=== PATIENT | male | born 1995 ===

== ENCOUNTER → 2024-07-20 | Day surgery (SDC) | payer MEDICAID, SELFPAY ==
[2024-07-19 14:55] VITALS: BMI 26.9
[2024-07-20 07:45] VITALS: BP 134/88; PULSE 93; RESP 16; TEMP 36.7; O2SAT 100; BMI 26.4
[2024-07-20] MEDS: SODIUM CHLORIDE 0.9% 500 ML 500 ML 20 ML IV (08:05)
--- NOTE | 2024-07-20 08:45 | SUR.PREOP ---
Patient was noted to become increasingly agitated. He stood up abruptly from [facility] and told [facility] staff at bedside he wanted to go back to his unit. Patient was re-directed to [facility]. IV was discontinued. IV site to right hand clean and dry. Dr. Tolentino was called and notified by charge nurse. Patient dressed himself and was escorted back to [facility] with [facility] and unit staff without further incident.
== END | disposition home or self-care (01) ==
LOC: SASD 07:23
PROVIDERS: PCP Internal Medicine; Referring Provider Specialist; Visit Provider Specialist
PROC: (CPT 43239; principal; 2024-07-20 08:30)
DX: R11.11 Vomiting without nausea (principal); Z53.9 Procedure and treatment not carried out, unspecified reason
CPT/HCPCS: 43235; J7040

== ENCOUNTER 2024-10-05 07:05 | Day surgery (SDC) | payer MEDICAID, SELFPAY ==
[2024-10-05] VITALS (9 sets, daily range): BP systolic 118–145; BP diastolic 80–97; PULSE 69–78; RESP 12–20; TEMP 36.5–36.6; O2SAT 94–100; BMI 27.9
[2024-10-05] MEDS: MIDAZOLAM INJ 1 MG/ML VIAL 2 ML IVP (07:43)
[2024-10-05] MEDS: MIDAZOLAM INJ 1 MG/ML VIAL 2 ML (ASD USE ONLY) IVP (08:08)
[2024-10-05] MEDS: SODIUM CHLORIDE 0.9% 500 ML 500 ML 20 ML IV (09:15)
[2024-10-05] MEDS: fentaNYL CIT INJ 50 mCg/ML AMP 2ML (ASD USE ONLY) IVP (09:18)
[2024-10-05] MEDS: MIDAZOLAM INJ 1 MG/ML VIAL 2 ML (ASD USE ONLY) 2 MG IVP (09:18)
== END 2024-10-05 10:03 | disposition home or self-care (01) ==
PROVIDERS: Referring Provider Specialist; Visit Provider Specialist
PROC: (CPT 43239; principal; 2024-10-05 08:30)
DX: K20.90 Esophagitis, unspecified without bleeding (principal); K29.70 Gastritis, unspecified, without bleeding; K31.89 Other diseases of stomach and duodenum; K29.50 Unspecified chronic gastritis without bleeding
CPT/HCPCS: 43239; J1200; J2250; J3010; J7999

== ENCOUNTER 2025-02-21 15:50 | Inpatient (IN) | payer MEDICAID, SELFPAY ==
[2025-02-21 15:52] VITALS: BP 164/91; PULSE 91; PULSE 99; RESP 18; TEMP 36.5; O2SAT 100; O2SAT 99; BMI 24.9
--- NOTE | 2025-02-21 16:25 | PD.EDRECHK ---
ED Recheck Abnl Lab Rx-RME/HPI General Chief Complaint: Weakness Stated Complaint: WEAKNESS Time Seen by Provider: 02/21/25 16:04 Arrival date/time: 02/21/25 15:50 Limitations: no limitations RME / HPI Description of abnormal result: 29 year old male with history of moderate intellectual disability, autism, schizophrenia, bipolar disorder, Asperger's, hyperlipidemia presents to the ED BIBA from [facility] for evaluation of abnormal labs. Per staff from [facility], patient has had abnormal behaviors in the last 2 days and labs were drawn today. State they received a call stating the patients sodium was 120 and BUN was 6. In the ED, patient reports feeling fine and does not provide any additional history. Related Data Home Medications ?Medication ?Instructions ?Recorded ?Confirmed atorvastatin 10 mg tablet 10 mg PO QPM 07/19/24 02/21/25 benztropine 1 mg tablet 1 mg PO QDAY 07/19/24 02/21/25 citalopram 10 mg tablet 10 mg PO QDAY 07/19/24 02/21/25 diphenhydramine HCl 50 mg tablet 50 mg PO HS 07/19/24 02/21/25 divalproex 500 mg tablet,extended 750 mg PO BID 07/19/24 02/21/25 release 24 hr haloperidol 10 mg tablet 10 mg PO HS 07/19/24 02/21/25 haloperidol 10 mg tablet 15 mg PO BID 07/19/24 02/21/25 cholecalciferol (vitamin D3) 50 2,000 unit PO QDAY 02/21/25 02/21/25 mcg (2,000 unit) capsule (D3-2000) docusate sodium 100 mg capsule 100 mg PO BID 02/21/25 02/21/25 Allergies Allergy/AdvReac Type Severity Reaction Status Date / Time clindamycin Allergy Verified 10/05/24 07:48 Review of Systems Review of Systems Systems Reviewed: All systems reviewed, normal except as documented Past Medical History Past Medical History NEUROLOGIC: Positive Neurological Disorders (EXTRAPYRAMIDAL MOVEMENT DISORDER) CARDIAC: Positive Cardiac Disorders and Hypercholesterolemia GASTROINTESTINAL: Positive Gastrointestinal Disorders (RECURRENT VOMITING, EATS FAST, DRINKS LARGE AMOUNTS OF WATER) PSYCHO/SOCIAL: Positive Psychiatric Problems, Schizophrenia, Bipolar Disorder, Anxiety and Behavior Problems OTHER HISTORY: Positive Autism and Developmental Delay (INTELLECTUAL DISABILITY) Social History SMOKING STATUS: Current some day smoker ED Exam General Limitations: Present no limitations General appearance: Present alert and in no apparent distress Head Head exam: Present atraumatic Eye Eye exam: Present normal appearance, PERRL and EOMI ENT ENT exam: Present normal exam, normal oropharynx and mucous membranes moist Neck Neck exam: Present normal inspection, full ROM and trachea midline Chest Chest inspection: Present normal inspection and symmetric chest wall rise Respiratory Respiratory exam: Present normal lung sounds bilaterally Cardiovascular Cardiovascular exam: Present regular rate, normal rhythm and normal heart sounds Abdominal Exam Abdominal exam: Present soft and normal bowel sounds Extremities Exam Extremities exam: Present normal inspection and full ROM Back Exam Back exam: Present normal inspection and full ROM Neurological Exam Neurological exam: Present alert and other (history of moderate intellectual disability) Psychiatric Psychiatric exam: Present other (Patient is guarded, at times agitated, combative with [facility] staff ) Skin Skin exam: Present warm, dry, intact and normal color Course Quality Measures none Orders Category Date Time Status Admit to Inpatient Status Routine Admission 02/22/25 08:44 Active Patient Condition Routine Admission 02/21/25 18:[address] in Observation Status Routine Admission 02/21/25 18:55 Active 24 HR Medical Restraints Q2HR Care 02/21/25 18:58 Completed Miscellaneous Nursing Order NOW Care 02/21/25 19:00 Completed Miscellaneous Nursing Order PRN Care 02/21/25 18:59 Completed Notify provider NEEDED Care 02/21/25 18:55 Completed Obtain weight daily Care 02/21/25 18:55 Completed Strict Intake and Output Routine Care 02/21/25 18:55 Ordered Consult to Nephrology Stat Cons 02/21/25 19:04 Ordered Diet Regular Diet 02/21/25 Dinner Active CBC AM DRAW Lab 02/22/25 04:37 Completed CBC Stat Lab 02/21/25 16:30 Completed CMP [Comprehensive Metabolic Panel] Routine Lab 02/22/25 04:35 Completed CMP [Comprehensive Metabolic Panel] Stat Lab 02/21/25 16:30 Completed Creatinine,Random Urine Stat Lab 02/21/25 16:35 Completed Drug Screen,Urine Stat Lab 02/21/25 20:15 Completed Electrolytes, Urine Random Stat Lab 02/21/25 16:35 Completed Electrolytes, Urine Random Stat Lab 02/21/25 20:15 Completed INR [Prothrombin Time with INR] Stat Lab 02/21/25 16:30 Completed Magnesium AM DRAW Lab 02/22/25 04:37 Completed Osmolality, Serum* Stat Lab 02/21/25 16:35 Completed Osmolality, Urine* Stat Lab 02/21/25 16:35 Completed Phosphorous AM DRAW Lab 02/22/25 04:37 Completed Sodium Q4H Lab 02/21/25 20:54 Completed Sodium Q4H Lab 02/22/25 01:06 Completed Sodium Q4H Lab 02/22/25 04:37 Completed UA, C/S IF [Urinalysis, C/S if Indicated] Stat Lab 02/21/25 20:15 Completed Acetaminophen Tab [Tylenol Tab] Med 02/21/25 18:55 Discontinued 650 mg PO Q6H PRN Atorvastatin Calcium [Lipitor] Med 02/21/25 21:00 Discontinued 10 mg PO QPM Benztropine [Cogentin] Med 02/22/25 09:00 Discontinued 1 mg PO QDAY DiphenhydrAMINE [Benadryl] Med 02/21/25 21:00 Discontinued 50 mg PO HS Divalproex Sod ER [Depakote Er] Med 02/21/25 21:00 Discontinued 750 mg PO BID Haloperidol Lactate [Haldol Inj] Med 02/21/25 19:04 Discontinued 5 mg IM Q8HR PRN LORazepam [Ativan Inj] Med 02/21/25 19:51 Discontinued 2 mg IV Q15MIN PRN Midazolam Inj [Versed Inj] Med 02/21/25 16:36 Discontinued 1 mg IVP X1 ONE Nicotine Patch [Nicoderm Patch] Med 02/21/25 22:00 Discontinued 21 mg TOP QDAY Ondansetron Inj [Zofran Inj] Med 02/21/25 18:55 Discontinued 4 mg IVP Q6H PRN Sodium Chloride 0.9% 1000 ml [Ns] 1,000 ml Med 02/21/25 18:20 Discontinued IV 75 mls/hr haloperidoL [Haldol] Med 02/22/25 09:00 Discontinued 15 mg PO BID Code Status Routine Oth 02/21/25 18:55 Completed EKG (RT) Stat RT 02/21/25 19:02 Ordered Oxygen Delivery PRN RT 02/21/25 18:55 Completed Vital Signs Vital signs: Vital Signs Temperature 97.7 F 02/21/25 15:52 Pulse Rate 99 02/21/25 15:52 Respiratory Rate 18 02/21/25 15:52 Blood Pressure 164/91 H 02/21/25 15:52 Pulse Oximetry (%) 100 02/21/25 15:52 Oxygen Delivery Method Room Air 02/21/25 15:52 Pulse ox is 100% on room air which is adequate. Recheck / Abnormal Lab / Rx MDM Narrative MDM Narrative:: ISuzi, am scribing for and in the presence of Dr. Harvey. Patient is a 29-year-old male with medical history notable for aggressive behavior, developmental delay, that is coming in from long-term facility for people with cognitive delay, for altered behavior. Vital signs and exam as listed. Concern for medication side effect, renal dysfunction, intoxication, substance use among others. Facility did order labs which showed patient had a sodium of 120, critically low and so was brought to the emergency department. Will order labs and medication to help with symptom relief and agitation. Labs with evidence of sodium 126, chloride 90 BUN 5 Osm's 250. 1627p: I spoke with hospitalist team A for admission. Requesting consultation with road oiler prior to admission. 1634p: I spoke with road oiler Dr. Larios. Discussed patients PMHx, HPI, ED course, exam findings, labs results. States there are multiple medications he is on that could be contributing to hyponatremia. He recommends we admit the patient here and recommends normal saline at 75mls/hr with q4h renal panels. Once the sodium gets to 130 to stop the fluids. Patient data External records reviewed:: [facility] previous records, EMS form and Other (specify) (I reviewed records from [facility] ) Clinical information provided by:: EMS and client representative Social determinants that could affect healthcare access:: mental health Patient has the following chronic illnesses:: moderate intellectual disability, autism, schizophrenia, bipolar disorder, Asperger's, hyperlipidemia How is presenting disease/condition affected by chronic disease/condition?: exacerbated by Evaluation data The following diagnostics were reviewed and interpreted by me:: lab results Lab and/or radiology exams considered but not ordered:: None Interpretation Summary: See MDM Medications / Prescriptions Medications or Prescriptions considered but not ordered:: None Medication administrations:: Medication Administration History Discontinued Medications Acetaminophen (Acetaminophen 325 Mg Tablet) 650 mg PO Q6H PRN PRN Reason: Fever >100.4 or Pain 1-10 Stop: 03/23/25 18:54 Atorvastatin Calcium (Atorvastatin Calcium 10 Mg Tablet) 10 mg PO QPM [facility] Stop: 03/23/25 20:59 Last Admin: 02/21/25 21:17 Dose: 10 mg Documented By: RC Benztropine Mesylate (Benztropine 0.5 Mg Tablet) 1 mg PO QDAY BERNARD Stop: 03/24/25 08:59 Last Admin: 02/22/25 08:29 Dose: 1 mg Documented By: SC Diphenhydramine HCl (Diphenhydramine 25 Mg Capsule) 50 mg PO HS BERNARD Stop: 03/23/25 20:59 Last Admin: 02/21/25 21:17 Dose: 50 mg Documented By: RC Divalproex Sodium (Divalproex Sod Er 250 Mg Freddy (Non-Formulary)) 750 mg PO BID BERNARD Stop: 03/23/25 20:59 Last Admin: 02/22/25 08:29 Dose: 750 mg Documented By: SC Admin: 02/21/25 21:16 Dose: 750 mg Documented By: DEQUAN Haloperidol (Haloperidol 5 Mg Tablet) 15 mg PO BID [facility]; Protocol Stop: 03/24/25 08:59 Last Admin: 02/22/25 09:49 Dose: 15 mg Documented By: SC Haloperidol Lactate (Haloperidol Lact Inj 5 Mg/Ml Vial) 5 mg IM Q8HR PRN; Protocol PRN Reason: AGITATION (SEVERE) Stop: 03/23/25 19:03 Sodium Chloride (Ns) 1,000 mls @ 75 mls/hr IV .[id number] [facility] Stop: 03/23/25 18:19 Last Admin: 02/21/25 18:35 Dose: 75 mls/hr Documented By: BY Lorazepam (Lorazepam 2 Mg/Ml Vial) 2 mg IV Q15MIN PRN PRN Reason: AGITATION (SEVERE) Midazolam HCl (Midazolam Inj 1 Mg/Ml Vial 2 Ml) 1 mg IVP X1 ONE Stop: 02/21/25 16:37 Last Admin: 02/21/25 16:51 Dose: 1 mg Documented By: BY Nicotine (Nicotine Patch 21 Mg/24 Hr Patch.Td24) 21 mg TOP QDAY BERNARD Stop: 03/23/25 21:59 Last Admin: 02/22/25 08:28 Dose: 21 mg Documented By: SC Admin: 02/21/25 22:14 Dose: 21 mg Documented By: RC Ondansetron HCl (Ondansetron Inj 2 Mg/Ml Inj 2 Ml) 4 mg IVP Q6H PRN; Protocol PRN Reason: NAUSEA OR VOMITING Stop: 03/23/25 18:54 See above Consultations Consultation(s) initiated? (list below): Yes Consultation #1 (Physician, Specialty, Details): See [facility] Diagnosis Recheck Differential Diagnosis: other Most likely diagnosis given after review of the tests above:: Symptomatic hyponatremia Admission Indicated Admission indicated?: indicated Admission Request Was there a request for admission?: Yes Admission Attestation Admission request attestation: Discussed case with [] from Hospitalist service regarding admission. Discussed patients ED course, exam findings, labs, and radiology results. The Hospitalist [agrees,declines] to accept the patient for admission. Disposition Plan Disposition Plan: Admit Critical Care Time Critical Care Time Critical Care Time: Yes Total Critical Care Time (min.): 36 Attestation: Total critical care time: Approximately?36?minutes Due to a high probability of clinically significant, life threatening deterioration, the patient required my highest level of preparedness to intervene emergently and I personally spent this critical care time directly and personally managing the patient. This critical care time included obtaining a history; examining the patient; pulse oximetry; ordering and review of studies; arranging urgent treatment with development of a management plan; evaluation of patient's response to treatment; frequent reassessment; and, discussions with other providers. This critical care time was performed to assess and manage the high probability of imminent, life-threatening deterioration that could result in multi-organ failure. It was exclusive of separately billable procedures and treating other patients and teaching time. Please see MDM section and the rest of the note for further information on patient assessment and treatment. Discharge Plan Plan Patient Disposition: Admit Acute Care w/in Hospital Patient condition on transfer: Stable Problem List Clinical Impression: Hyponatremia, Acute confusion Patient/Caregiver Discharge Instructions Discharge Activity: as per physical therapy, activity as tolerated and resume usual activities
[2025-02-21 16:40] LABS: Basophils # (Auto) 0.0 Thou/mm3 (0.0-0.2); Basophils % (Auto) 0 % (0-2.5); Eosinophils # (Auto) 0.0 Thou/mm3 (0.0-0.5); Eosinophils % (Auto) 0 % (0-10); Hematocrit 37.8 % (41.0-53.0); Hemoglobin 13.8 g/dL (13.5-16.0); Immature Granulocytes Auto 0.02 Thou/mm3 (0.00-0.00); Lymphocytes # (Auto) 2.0 Thou/mm3 (1.0-4.8); Lymphocytes % (Auto) 43 % (10-50); Mean Corpuscular HGB Conc 36.5 g/dl (31.0-37.0); Mean Corpuscular Hemoglobin 34.2 pg (25.0-35.0); Mean Corpuscular Volume 94 fL (80-100); Monocytes # (Auto) 0.8 Thou/mm3 (0.0-0.8); Monocytes % (Auto) 17 % (0-12); Neutrophils # (Auto) 1.8 Thou/mm3 (1.8-7.7); Neutrophils % (Auto) 40 % (37-80); Nucleated Red Blood Cell # 0.00 Thou/mm3 (0.00-0.00); Nucleated Red Blood Cell % 0 /100 WBC (0); Platelet Count 299 Thou/mm3 (140-440); RDW Standard Deviation 38.5 fL (35.1-43.9); Red Blood Count 4.03 Miln/mm3 (4.50-5.90); White Blood Count 4.6 Thou/mm3 (3.8-10.6)
[2025-02-21] MEDS: MIDAZOLAM INJ 1 MG/ML VIAL 2 ML IVP (16:51)
[2025-02-21 16:54] VITALS: BP 128/93; PULSE 98; RESP 18; O2SAT 97
[2025-02-21 17:01] LABS: INR 1.1 (0.9-1.3); Prothrombin Time 11.4 Seconds (9.0-12.2)
[2025-02-21 17:08] LABS: Alanine Aminotransferase 26 U/L (10-49); Albumin, Serum 5.2 gm/dL (3.5-5.0); Albumin/Globulin Ratio 1.7 (1.2-2.2); Alkaline Phosphatase 85 U/L (46-116); Anion Gap 9 (7-16); Aspartate Amino Transferase 77 U/L (0-34); BUN/Creatinine Ratio 6 Ratio (12-20); Bilirubin,Total 0.7 mg/dL (0.3-1.2); Blood Urea Nitrogen 5 mg/dL (9-23); Calcium 10.3 mg/dL (8.3-10.6); Calcium (Corrected) 10.3 mg/dL (8.5-10.1); Carbon Dioxide 27.3 mMol/L (20.0-31.0); Chloride 90 mMol/L (98-107); Creatinine (Component) 0.9 mg/dL (0.6-1.3); Estimated Creatinine Clearance 139.5 mL/min (>60); Globulin 3.0 gm/dL (2.3-3.5); Glucose 93 mg/dL (74-106); Osmolality,Calculated 250 (275-295); Potassium 4.8 mMol/L (3.4-5.1); Sodium 126 mMol/L (136-145); Total Protein 8.2 gm/dL (5.7-8.2); eGFR > 60 See Note
[2025-02-21 17:14] LABS: Chloride,Urine Random < 20.0 mMol/L (55.0-125.0); Creatinine,Random Urine 17 mg/dL (30-125); Potassium,Urine Random < 10 mMol/L (12-62); Sodium,Urine Random < 10.0 mMol/L (20.0-110.0)
--- NOTE | 2025-02-21 17:20 | PC.NURSE ---
spoke to anusha from [facility], if patient needs any consents it is Nate Rahman at there facility who can make any medical decision, he can be reached at [phone], also spoke to sherry the supervisior at the facility , states that patient was not acting himself today, was saying and doing things out of the ordinary, not usual things he would do on a normal day
[2025-02-21] MEDS: SODIUM CHLORIDE 0.9% 1000 ML 1,000 ML 75 ML IV (18:35)
[2025-02-21 18:37] VITALS: BP 129/65; PULSE 86; RESP 18; O2SAT 96
[2025-02-21 20:39] LABS: Collection Type, Urine Clean Catch; Squamous Epithelial Cell,Urine 0 /hpf (0-5); WBC,Urine 0 /hpf (0-5)
[2025-02-21 20:47] LABS: Chloride,Urine Random < 20.0 mMol/L (55.0-125.0); Potassium,Urine Random < 10 mMol/L (12-62); Sodium,Urine Random < 10.0 mMol/L (20.0-110.0)
[2025-02-21 20:49] LABS: Bilirubin,Urine Negative (Negative); Blood,Urine Negative (Negative); Clarity,Urine Clear (Clear/Hazy); Color,Urine Colorless (Lt Yel-Yel); Culture Indicated,Urine Not Indicated; Glucose, Urine Negative (Negative); Ketones,Urine 1+ (Negative); Leukocyte Esterase,Urine Negative (Negative); Nitrite,Urine Negative (Negative); PH,Urine 7.0 (5.0-7.0); Protein,Urine Negative (Neg - Trace); RBC,Urine < 1 /hpf (0-3); Specific Gravity,Urine 1.002 (1.001-1.035); Urobilinogen,Urine Negative mg/dL (0.0-1.0)
[2025-02-21 20:59] VITALS: BP 112/75; PULSE 77; RESP 14; TEMP 36.1; O2SAT 96
[2025-02-21 21:02] LABS: Amphetamine/Methamp Scrn,U Negative (Negative); Barbiturate Screen,Urine Negative (Negative); Benzodiazepines Screen,Urine Positive (Negative); Benzoylecgonine Screen, Ur Negative (Negative); Fentanyl Screen,Urine Negative (Negative); Opiate Screen,Urine Negative (Negative); THC Screen,Urine Negative (Negative)
[2025-02-21] MEDS: DIVALPROEX SOD ER 250 MG TABER (NON-FORMULARY) 750 MG PO (21:16)
[2025-02-21] MEDS: ATORVASTATIN CALCIUM 10 MG TABLET PO (21:17)
[2025-02-21 21:18] LABS: Sodium 128 mMol/L (136-145)
--- NOTE | 2025-02-21 21:23 | PD.RESHP ---
Documentation for date of: 02/21/25 HPI History of Present Illness Chief complaint: Low sodium on labs today History of present illness: Patient is a 29-year-old male with past medical history of moderate intellectual disability, autism, schizophrenia, bipolar disorder, and hyperlipidemia who presented to the ED on 02/21/2025 BIBA from [facility] for evaluation of abnormal labs. In the ED, patient reports feeling fine and does not provide any additional history. Present are 2 psych technicians and a security member from [facility]. Per staff, patient has had confusion and abnormal behaviors in the last 2-3 days including nonsensical answers to simple questions which the patient would normally answer correctly. Patient additionally was addressing staff member as Dad, found urinating out in the hallway, and talking more frequently which are all unusual for him. Labs drawn today at the facility reported a sodium of 120. Patient has not had any notable other symptoms such as nausea, vomiting, diarrhea, noticable pain, fever, chills, diaphoresis, cough, or shortness of breath. No reported seizures or history of seizures. Patient has not had any recent medication changes. They do note that patient has a tendency to drink lots of water and has access to as much water as he likes in his room. Patient additionally binge eats very quickly, sometimes leading to vomiting. However they note that these habits are not new. Of note: Staff report that patient has methodical routine including timed smoke breaks and if he is not able to carry out his routine, he can become very agitated, at times requiring up to 7 staff members and 5-point restraints during these episodes, despite compliance with medications. ED Course: -Initial vitals include hypertension 164/91 -Labs significant for sodium 126, chloride 90, calculated osmolality 250, calcium 10.3, AST 77, ALT 26 -Urine showed random creatinine 17, sodium <10, potassium <10, and chloride <20 indicating dilute urine -In the ED, patient was given midazolam 1 mg IV x1 and started on IV NS at 75 ml/hr -Nephrology was consulted by the ED and recommended sodium trending, starting IV NS, and medication reconciliation for possible causes of hyponatremia -Patient was admitted for further management of hyponatremia Review of Systems Review of systems otherwise negative except what is mentioned above. Exam Vital Signs Temp Pulse Resp BP Pulse Ox O2 Del Method 97.0 F 77 14 112/75 96 Room Air 02/21/25 20:59 02/21/25 20:59 02/21/25 20:59 02/21/25 20:59 02/21/25 20:59 02/21/25 18:37 Results: Labs 02/22/25 04:37 02/22/25 04:37 Labs: Short CBC 02/21/25 Range/Units 16:30 WBC 4.6 (3.8-10.6) Thou/mm3 Hgb 13.8 (13.5-16.0) g/dL Hct 37.8 L (41.0-53.0) % Plt Count 299 (140-440) Thou/mm3 BMP 02/21/25 02/21/25 16:30 20:54 Sodium 126 L 128 L Potassium 4.8 Chloride 90 L Carbon Dioxide 27.3 BUN 5 L Creatinine 0.9 Glucose 93 Calcium 10.3 Liver Function 02/21/25 Range/Units 16:30 Total Bilirubin 0.7 (0.3-1.2) mg/dL AST 77 H (0-34) U/L ALT 26 (10-49) U/L Alkaline Phosphatase 85 (46-116) U/L Albumin 5.2 H (3.5-5.0) gm/dL Urine 02/21/25 Range/Units 20:15 Urine Color Colorless A (Lt Yel-Yel) Urine Clarity Clear (Clear/Hazy) Urine pH 7.0 (5.0-7.0) Ur Specific [place] 1.002 (1.001-1.035) Urine Protein Negative (Neg - Trace) Urine Glucose (UA) Negative (Negative) Quality Measures Quality Measures none Medications Home Medications and Allergies Home Medications ?Medication ?Instructions ?Recorded ?Confirmed ?Type atorvastatin 10 mg tablet 10 mg PO QPM 07/19/24 02/21/25 History benztropine 1 mg tablet 1 mg PO QDAY 07/19/24 02/21/25 History citalopram 10 mg tablet 10 mg PO QDAY 07/19/24 02/21/25 History diphenhydramine HCl 50 mg tablet 50 mg PO HS 07/19/24 02/21/25 History divalproex 500 mg tablet,extended 750 mg PO BID 07/19/24 02/21/25 History release 24 hr haloperidol 10 mg tablet 10 mg PO HS 07/19/24 02/21/25 History haloperidol 10 mg tablet 15 mg PO BID 07/19/24 02/21/25 History cholecalciferol (vitamin D3) 50 2,000 unit PO QDAY 02/21/25 02/21/25 History mcg (2,000 unit) capsule (D3-2000) desmopressin 0.2 mg tablet 0.4 mg PO HS 02/21/25 02/21/25 History docusate sodium 100 mg capsule 100 mg PO BID 02/21/25 02/21/25 History Allergies Allergy/AdvReac Type Severity Reaction Status Date / Time clindamycin Allergy Verified 10/05/24 07:48 Visit Medications Acetaminophen (Acetaminophen 325 Mg Tablet) 650 mg PO Q6H PRN PRN Reason: Fever >100.4 or Pain 1-10 Stop: 03/23/25 18:54 Atorvastatin Calcium (Atorvastatin Calcium 10 Mg Tablet) 10 mg PO QPM [facility] Stop: 03/23/25 20:59 Last Admin: 02/21/25 21:17 Dose: 10 mg Benztropine Mesylate (Benztropine 0.5 Mg Tablet) 1 mg PO QDAY [facility] Stop: 03/24/25 08:59 Diphenhydramine HCl (Diphenhydramine 25 Mg Capsule) 50 mg PO HS BERNARD Stop: 03/23/25 20:59 Last Admin: 02/21/25 21:17 Dose: 50 mg Divalproex Sodium (Divalproex Sod Er 250 Mg Freddy (Non-Formulary)) 750 mg PO BID BERNARD Stop: 03/23/25 20:59 Last Admin: 02/21/25 21:16 Dose: 750 mg Haloperidol Lactate (Haloperidol Lact Inj 5 Mg/Ml Vial) 5 mg IM Q8HR PRN PRN Reason: AGITATION (SEVERE) Stop: 03/23/25 19:03 Sodium Chloride (Ns) 1,000 mls @ 75 mls/hr IV .[id number] [facility] Stop: 03/23/25 18:19 Last Admin: 02/21/25 18:35 Dose: 75 mls/hr Lorazepam (Lorazepam 2 Mg/Ml Vial) 2 mg IV Q15MIN PRN PRN Reason: AGITATION (SEVERE) Ondansetron HCl (Ondansetron Inj 2 Mg/Ml Inj 2 Ml) 4 mg IVP Q6H PRN; Protocol PRN Reason: NAUSEA OR VOMITING Stop: 03/23/25 18:54 Discontinued Medications Midazolam HCl (Midazolam Inj 1 Mg/Ml Vial 2 Ml) 1 mg IVP X1 ONE Stop: 02/21/25 16:37 Last Admin: 02/21/25 16:51 Dose: 1 mg Assessment & Plan Plan 29-year-old male with past medical history of moderate intellectual disability, autism, schizophrenia, bipolar disorder, and hyperlipidemia who presented to the ED on 02/21/2025 BIBA from [facility] for evaluation of abnormal labs, admitted for further management of hyponatremia. #Euvolemic hypoosmolar moderate hyponatremia Patient presents with confusion for the last 2-3 days, had sodium of 120 at [facility] facility. Here in ED evaluation sodium was 126. Serum calculated osmolality was 250 indicating hypoosmolar hyponatremia. Urine electrolytes showed low sodium indicating less likely SIADH. Patient has history of high water intake, and also occasional vomiting with meals. -Nephrology consulted, appreciate recommendations -Sodium checks q4h -IV NS at 75 ml/hr #History of intellectual disability #History of autism #History of schizophrenia #History of bipolar disorder -Continue home medications when reconciled -Haloperidol as needed for acute agitation DVT prophylaxis: None GI prophylaxis: Not indicated Diet: Regular [place]: None Lines: Peripheral IV Antibiotics: None CODE STATUS: FULL Reason for hospitalization: Hyponatremia Patient plan of care was discussed with the attending physician, Dr. Moran. Perla Rossi, PGY-3 Attending Provider Attestation/Addendum I have examined the patient, reviewed labs and imaging findings, discussed the case with the resident(s), and reviewed entered orders. I agree with the plan of care as outlined in this note, with these additional summaries/recommendations: After examination of the patient and review of the clinical data, I feel that this patient needs admission to the hospital for further treatment and evaluation. Patient is a 29-year-old male with a medical history of autism, schizophrenia/bipolar, intellectual disability, and hyperlipidemia who presents to [facility] emergency department on 02/21/2025 with chief complaint of abnormal labs. Patient is providing minimal history at this time. Patient diagnosed with euvolemic hypoosmolar with sodium 126 and serum osmolality 250. 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 Nephrology consulted, recommendations appreciated. Continue to trend sodium and avoid overcorrection. Continue home antipsychotics. Patient updated on the plan. Please see residents note for additional details and management. Dr. Luisa MD
[2025-02-21] MEDS: NICOTINE PATCH 21 MG/24 HR PATCH.TD24 TOP (22:14)
[2025-02-22] VITALS: BP 123/71; PULSE 77; PULSE 82; RESP 15; TEMP 36.1; O2SAT 97
[2025-02-22 01:26] LABS: Sodium 131 mMol/L (136-145)
[2025-02-22 02:01] VITALS: PULSE 84; RESP 16; RESP 96
[2025-02-22 04:00] VITALS: BP 150/110; PULSE 108; PULSE 113; RESP 20; TEMP 36.1; O2SAT 98
[2025-02-22 05:37] LABS: Basophils # (Auto) 0.0 Thou/mm3 (0.0-0.2); Basophils % (Auto) 0 % (0-2.5); Eosinophils # (Auto) 0.0 Thou/mm3 (0.0-0.5); Eosinophils % (Auto) 1 % (0-10); Hematocrit 40.1 % (41.0-53.0); Hemoglobin 14.7 g/dL (13.5-16.0); Immature Granulocytes Auto 0.01 Thou/mm3 (0.00-0.00); Lymphocytes # (Auto) 1.3 Thou/mm3 (1.0-4.8); Lymphocytes % (Auto) 32 % (10-50); Mean Corpuscular HGB Conc 36.7 g/dl (31.0-37.0); Mean Corpuscular Hemoglobin 34.5 pg (25.0-35.0); Mean Corpuscular Volume 94 fL (80-100); Monocytes # (Auto) 0.8 Thou/mm3 (0.0-0.8); Monocytes % (Auto) 20 % (0-12); Neutrophils # (Auto) 1.9 Thou/mm3 (1.8-7.7); Neutrophils % (Auto) 47 % (37-80); Nucleated Red Blood Cell # 0.00 Thou/mm3 (0.00-0.00); Nucleated Red Blood Cell % 0 /100 WBC (0); Platelet Count 302 Thou/mm3 (140-440); RDW Standard Deviation 40.9 fL (35.1-43.9); Red Blood Count 4.26 Miln/mm3 (4.50-5.90); White Blood Count 4.1 Thou/mm3 (3.8-10.6)
[2025-02-22 06:10] LABS: Magnesium 2.0 mg/dL (1.6-2.6); Phosphorous 3.8 mg/dL (2.4-5.1); Sodium 134 mMol/L (136-145)
[2025-02-22 07:01] VITALS: PULSE 85; RESP 16; RESP 96
[2025-02-22 08:00] VITALS: BP 126/86; PULSE 129; PULSE 85; RESP 22; TEMP 36.5; O2SAT 99
[2025-02-22] MEDS: NICOTINE PATCH 21 MG/24 HR PATCH.TD24 TOP (08:28)
[2025-02-22] MEDS: BENZTROPINE 0.5 MG TABLET 1 MG PO (08:29)
[2025-02-22] MEDS: DIVALPROEX SOD ER 250 MG TABER (NON-FORMULARY) 750 MG PO (08:29)
[2025-02-22 08:49] LABS: Alanine Aminotransferase 32 U/L (10-49); Albumin, Serum 5.2 gm/dL (3.5-5.0); Albumin/Globulin Ratio 1.9 (1.2-2.2); Alkaline Phosphatase 89 U/L (46-116); Anion Gap 13 (7-16); Aspartate Amino Transferase 72 U/L (0-34); BUN/Creatinine Ratio 10 Ratio (12-20); Bilirubin,Total 0.4 mg/dL (0.3-1.2); Blood Urea Nitrogen 8 mg/dL (9-23); Calcium 10.7 mg/dL (8.3-10.6); Calcium (Corrected) 10.7 mg/dL (8.5-10.1); Carbon Dioxide 23.8 mMol/L (20.0-31.0); Chloride 97 mMol/L (98-107); Creatinine (Component) 0.8 mg/dL (0.6-1.3); Estimated Creatinine Clearance 157.0 mL/min (>60); Globulin 2.7 gm/dL (2.3-3.5); Glucose 69 mg/dL (74-106); Osmolality,Calculated 264 (275-295); Potassium 4.5 mMol/L (3.4-5.1); Sodium 134 mMol/L (136-145); Total Protein 7.9 gm/dL (5.7-8.2); eGFR > 60 See Note
--- NOTE | 2025-02-22 09:45 | PC.NURSE ---
PT WILL BE DISCHARGE , PT SELF REMOVED IV MD AWARE NO IV IN PLACE
--- NOTE | 2025-02-22 11:06 | PC.NURSE ---
Report and discharge education given to Elsa BOO at [facility]
--- NOTE | 2025-02-22 11:13 | PC.SS ---
TOBACCO PRIZER conducted phone contact with [facility] staff director of community education, Kassidy; .? TOBACCO PRIZER confirmed that patient is ambulatory and does not require the use of oxygen at facility.? Patient is able to complete ADL?s independently.? Patient is not conserved per [facility] staff.? Patient?s medical decision maker is [facility] medical insurance clerk Dr. Sullivan.? Discharge plan is for the patient to return to [facility].? [facility] will arrange transport on behalf of the patient.? No further intervention required at this time, supervisor special services will be available to address any further concerns.? D/C Plan: Return to [facility]
[2025-02-22 11:30] VITALS: BP 140/104; PULSE 100; RESP 20; TEMP 36.3; O2SAT 99
--- NOTE | 2025-02-22 12:00 | PD.RESDS ---
Planned Discharge Date 02/22/25 DS: Providers Provider Date of admission: 02/22/25 08:44 Primary care physician: Physician No Primary/Family Admitting Provider: Lex Moran MD Attending Provider on Admission: Lex Moran MD Consults: 02/21/25 19:04 Consult to Nephrology Stat Comment: Hyponatremia Consulting Provider: Ramiro Larios Attending Provider on DC: Lex Moran MD Discharging Provider: Perla Rossi MD DS: Diagnosis Problem List Completed Was Problem List Reviewed/Reconciled?: Yes Hospital Course Hospital Course Hospital course: Reason for hospitalization: Hyponatremia 29-year-old male with past medical history of moderate intellectual disability, autism, schizophrenia, bipolar disorder, and hyperlipidemia who presented to the ED on 02/21/2025 BIBA from [facility] for evaluation of abnormal labs. In the ED, patient reported feeling fine and does not provide any additional history. Per staff, patient has had confusion and abnormal behaviors in the last 2-3 days including nonsensical answers to simple questions which the patient would normally answer correctly. Labs drawn today at the facility reported a sodium of 120, in ED was 126 with calculated osmolality 250 and low urine sodium <10. Patient has not had any notable other symptoms such as nausea, vomiting, diarrhea, noticable pain, fever, chills, diaphoresis, cough, or shortness of breath. No reported seizures or history of seizures. Patient has not had any recent medication changes. Staff did note that patient has a tendency to drink lots of water and has access to as much water as he likes in his room. Nephrology was consulted from ED and recommended patient to start on IV NS at 75 ml/hr, patient was thus admitted. Staff noted that patient can get combative when not able to carry out his typical routine however patient did not require any physical or chemical restraints during this admission. Sodium was trended throughout the night and morning sodium was 134. Patient was able to answer orientation to self, age, and place correctly, and follow directions. He was determined stable for discharge back to [facility] with instructions to stop desmopressin, limit water intake, and obtain repeat BMP in 1 week. Discharge Recommendations: -Follow up with PCP within 1 week of discharge -Hold desmopressin as this can cause low sodium -Limit water intake to no more than 3L per day -Obtain repeat blood work in 1 week: basic metabolic panel -Continue rest of medications as previously prescribed -Return to the ED or call EMS if symptoms return and/or worsen. Hospital Diagnoses: #Euvolemic hypoosmolar moderate hyponatremia #History of intellectual disability #History of autism #History of schizophrenia #History of bipolar disorder Patient plan of care was discussed with the attending physician, Dr. Hauser. Perla Rossi, PGY-3 Status at Discharge Cognitive/behavioral status at discharge: Baseline Time Spent with Patient Time attestation: Total time spent providing and/or coordinating discharge services: Time spent: Less than 30 minutes Exam Vital Signs Temp Pulse Resp BP Pulse Ox O2 Del Method 97.3 F 100 20 140/104 H 99 Room Air 02/22/25 11:30 02/22/25 11:30 02/22/25 11:30 02/22/25 11:30 02/22/25 11:30 02/22/25 11:30 Narrative Exam Physical Exam General: Awake and in no acute distress. Answers questions and non-toxic appearing. HEENT: Normocephalic, atraumatic, mucous membranes moist. Heart: Regular rate and rhythm, normal S1 and S2, no murmurs. Lungs: Clear to auscultation with no wheezing or crackles. Abdomen: Soft, nondistended, nontender, positive bowel sounds. ?No guarding or rebound tenderness. Neurologic: Alert and oriented x3, no gross neurological deficit, and patient able to move all 4 extremities. Extremities: No edema. Skin: No rash or ecchymoses. Discharge Plan Plan Patient Disposition: Xfer Other Disposition Comment: [facility] Patient condition on transfer: Stable Care Plan Goals: Discharge Recommendations: -Follow up with PCP within 1 week of discharge -Hold desmopressin as this can cause low sodium -Limit water intake to no more than 3L per day -Obtain repeat blood work in 1 week: basic metabolic panel -Continue rest of medications as previously prescribed -Return to the ED or call EMS if symptoms return and/or worsen. Prescriptions/Referrals Prescriptions/Med Rec: Continued diphenhydramine HCl 50 mg tablet 50 mg PO HS atorvastatin 10 mg tablet 10 mg PO QPM benztropine 1 mg tablet 1 mg PO QDAY citalopram 10 mg tablet 10 mg PO QDAY divalproex 500 mg tablet extended release 24 hr 750 mg PO BID haloperidol 10 mg tablet 10 mg PO HS Rx Instructions: do not exceed 10 doses per 24 hrs haloperidol 10 mg tablet 15 mg PO BID docusate sodium 100 mg capsule 100 mg PO BID cholecalciferol (vitamin D3) [D3-2000] 50 mcg (2,000 unit) capsule 2,000 unit PO QDAY Discontinued desmopressin 0.2 mg tablet 0.4 mg PO HS Referrals: No Primary/Family,Physician [Primary Care Provider] Patient/Caregiver Discharge Instructions Discharge Activity: as per physical therapy, activity as tolerated and resume usual activities Education Materials: Limiting Fluids Dc, ED Hyponatremia Print Language: Unknown Stand Alone Forms: [employer] Award Info., Patient Portal Info Letter Discharge Order Discharge Orders: Discharge (Routine); Ordered 02/22/25 Ordered By: Perla Rossi Quality Discharge Quality Measures none MD Attestestation MD Attestation I have examined the patient, reviewed labs and imaging findings, discussed the case with the resident(s), and reviewed entered orders. I agree with the plan of care as outlined in this note. Time Spent: [address] Luisa MD
[2025-02-28 07:07] LABS: Osmolality, Serum* 290 mOsm/kg (278-305); Osmolality, Urine* 55 mOsm/kg (50-1200)
== END 2025-02-22 11:20 | disposition other institution (70) | DRG 426 ==
LOC: SERX 17:43 → S2NX 02-22 08:42 → SERHOLD 02-22 08:58 → S2NX 02-22 08:58
PROVIDERS: Student in an Organized Health Care Education/Training Program; Admitting Provider Student in an Organized Health Care Education/Training Program; Emergency Provider Emergency Medicine; Visit Provider Student in an Organized Health Care Education/Training Program
DX: E87.1 Hypo-osmolality and hyponatremia (principal); E78.5 Hyperlipidemia, unspecified; F84.5 Asperger's syndrome; F71 Moderate intellectual disabilities; F31.9 Bipolar disorder, unspecified; F20.9 Schizophrenia, unspecified; F17.200 Nicotine dependence, unspecified, uncomplicated; Z79.899 Other long term (current) drug therapy
CPT/HCPCS: 36415; 80051; 80053; 80307; 81001; 82436; 82570; 83735; 83930; 83935; 84100; 84133; 84295; 84300; 85025; 85610; 96374; 99283; G0378; J2250; J7030; A9270